=== PATIENT | female | born 1990 | race Caucasian/White ===

== ENCOUNTER 2017-01-16 06:33 | Emergency (ER) | payer SELFPAY ==
[~2017-01-16] VITALS: Ht 177.8 cm; Wt 64.0 kg
[~2017-01-16 06:33] MED LIST: AMOX500C5 PO; AZIT250T81 PO; CEPH-507 PO; CODE-54 PO; HYDR-3754 PO; KETO10TA55 PO; MYLANTA PO; OMEP20CA6 PO; PRX20T PO; RANITIDINE PO; SUCR1TAB29 PO
--- OUTSIDE RECORDS SUMMARY | 2017-01-16 06:39 | XMS REPORT | Continuity of Care Document ---
Author Author [facility] Address Unknown Phone Unavailable Care Team Providers Care Exhibits Curator Name Role Phone JARAD, RAHUL Parker MD PCP [phone] Insurance Providers Payer Name Policy Number Subscriber Name Relationship [facility] [id number] Lary Apple 18 Self / Same As Patient Advance Directives Directive Response Recorded Date/Time Advanced Directives No 09/08/16 6:11pm Chief Complaint and Reason for Visit Chief Complaint GI Complaint Reason for Visit Sore throat Gastroenteritis Problems Active Problems Medical Problem Onset Date Status Abdominal pain 03/13/2013 Acute Acute urinary tract infection 02/09/2013 Acute Cholecystitis 03/13/2013 Acute Chronic back pain Unknown Acute Gastroenteritis Unknown Acute Migraine Unknown Acute Peptic ulcer 03/07/2013 Acute Sore throat Unknown Acute Toothache ~01/31/2014 Acute Medications Current Home Medications Medication Dose Units Route Directions Days/Qty Instructions Start Date Acetaminophen/Codeine 1 Tab 1-2 Tab ORAL Every 4HRS as needed for Pain 15 01/31/14 Paroxetine Hcl (Paxil) 20 Mg 20 Mg ORAL Daily 09/08/16 Azithromycin 6 Tab/Pkt 250 Mg ORAL See Instructions for Infection 6 Day One: Take 2 tablets by mouth Days Two-Five: Take 1 tablet by mouth 09/08/16 Past Home Medications Medication Directions Ordered Status Ketorolac Tromethamine 10 Mg Tablet, 10 Mg Oral Every 6 Hours 02/09/13 Discontinued Cephalexin 500 Mg Capsule, 1000 Mg Oral Twice A Day 02/09/13 Discontinued Hydrocodone Bit/Acetaminophen 1 Tab Tab, 1 Tab Oral Q 4H Prn 03/07/13 Discontinued Omeprazole 20 Mg Capsule.dr, 20 Mg Oral Daily 03/07/13 Discontinued Sucralfate 1 Gm Tablet, 1 Gm Oral Three Times Daily With Meals 03/12/13 Discontinued [Mylanta] Susp, Oral 03/13/13 Discontinued [Ranitidine] Tab, Oral 03/13/13 Discontinued Amoxicillin 500 Mg Capsule, 1 Tab Oral Three Times A Day 01/31/14 Discontinued Social History Query Response Start Date Stop Date Smoking Status Current every day smoker Hospital Discharge Instructions No hospital discharge instructions. Plan of Care Discharge Date 09/08/16 8:05pm Disposition 01 HOME OR SELF-CARE Condition at Discharge Stable Instructions/Education Provided Nausea and Vomiting, Adult (DC) Viral Gastroenteritis, Adult (DC) Forms Provided Patient Seen In ED Return to Work Prescriptions See Medication Section Referrals RAHUL ABRAHAM MD - Additional Instructions/Education ED DAE if any worse. Follow up with your doctor. Some of your test results may not be complete prior to your leaving the Emergency Department. The Emergency Department is not authorized to give test results over the phone. Please contact the doctor's office listed in this packet of information for your final results. Follow up with your primary care physician or return to the Emergency Department for worsening or worrisome symptoms. * Emergency Department phone number: [phone], x [phone]* MEDICAL RECORD If you need copies of your X-rays, call [phone]. If you need copies of your medical record, including lab results, a signed authorization for release of records will be required. A telephone call for release of Health Information is not allowed. BILLING Billing can sometimes be confusing and frustrating. To help avoid confusion in the future, please take a moment to acquaint yourself with the billing parties for services. SERVICE BILLING [employer]AT Emergency Room Services [facility] Physician Services [facility] X-rays [facility] Patients will receive bills for services from the appropriate provider. If you have any questions about your [facility] bill, our staff will be happy to assist you. Please call [phone], and ask for the billing department. THANK YOU for choosing [facility] as your emergency care provider! Care Plan and Goals ~~Discharge Care Plan~~ Problem: Sore throat Goal: Pain decreased from sore throat. Instructions: Gargle with warm salt water to help reduce swelling and pain. Drink plenty of fluids. Hot fluids, such as tea or soup, may help decrease throat irritation. Take medication(s) as directed. Follow up with primary care physician as directed. Functional Status No functional status results. Allergies, Adverse Reactions, Alerts No known allergies. Immunizations No immunization records. Vital Signs Acute Vital Signs Vital Response Date/Time Temperature (Fahrenheit) 98.0 09/08/2016 7:32pm Pulse 107 bpm 09/08/2016 7:32pm Respirations 16 09/08/2016 7:32pm Height 5 ft 9 in Weight 141 lb Body Mass Index 20.0 kg/m^2 Results Laboratory Results Test Name Result Units Flags Reference Collection Date/Time Result Date/ Time Comments White Blood Count 10.27 10^3uL 4.0-11.0 09/08/2016 6:36pm 09/08/2016 6: 50pm Red Blood Count 4.82 10^6uL 4.00-5.00 09/08/2016 6:36pm 09/08/2016 6: 50pm Hemoglobin 14.3 g/dL 12.0-15.5 09/08/2016 6:36pm 09/08/2016 6:50pm Hematocrit 40.00 % 35.00-45.00 09/08/2016 6:36pm 09/08/2016 6:50pm Mean Corpuscular Volume 83 FL 80-100 09/08/2016 6:36pm 09/08/2016 6: 50pm Mean Corpuscular Hemoglobin 29.7 PG 26.0-34.0 09/08/2016 6:36pm 2015 6:50pm Mean Corpuscular Hemoglobin Concent 35.8 g/dL 31.0-37.0 09/08/2016 6: 36pm 09/08/2016 6:50pm Red Cell Distribution Width 12.4 % 11.8-15.6 09/08/2016 6:36pm 2015 6:50pm Platelet Count 295 10^3uL 150-450 09/08/2016 6:36pm 09/08/2016 6:50pm Mean Platelet Volume 8.9 FL 6.0-9.5 09/08/2016 6:36pm 09/08/2016 6: 50pm Neutrophils (%) (Auto) 71 % H 51-67 09/08/2016 6:36pm 09/08/2016 6:50pm Lymphocytes (%) (Auto) 20 % 20-46 09/08/2016 6:36pm 09/08/2016 6:50pm Monocytes (%) (Auto) 8 % 3-11 09/08/2016 6:36pm 09/08/2016 6:50pm Eosinophils (%) (Auto) 1 % 0-4 09/08/2016 6:36pm 09/08/2016 6:50pm Basophils (%) (Auto) 0 % 0-2 09/08/2016 6:36pm 09/08/2016 6:50pm Neutrophils # (Auto) 7.3 X10^3 09/08/2016 6:36pm 09/08/2016 6:50pm Lymphocytes # (Auto) 2.1 X10^3 09/08/2016 6:36pm 09/08/2016 6:50pm Monocytes # (Auto) 0.8 X10^3 09/08/2016 6:36pm 09/08/2016 6:50pm Eosinophils # (Auto) 0.1 10^3uL 09/08/2016 6:36pm 09/08/2016 6:50pm Basophils # (Auto) 0.0 10^3uL 09/08/2016 6:36pm 09/08/2016 6:50pm Urine Collection Type CLEAN CATCH 09/08/2016 6:30pm 09/08/2016 6: 50pm Urine Color Yellow 09/08/2016 6:30pm 09/08/2016 6:50pm Urine Clarity Slightly Cloudy 09/08/2016 6:30pm 09/08/2016 6:50pm Urine pH 6.0 5.0 - 8.0 09/08/2016 6:30pm 09/08/2016 6:50pm Urine Specific [place] >=1.030 1.005-1.030 09/08/2016 6:30pm 2015 6:50pm Urine Protein Negative Negative 09/08/2016 6:30pm 09/08/2016 6:50pm Urine Glucose (UA) Negative Negative 09/08/2016 6:30pm 09/08/2016 6: 50pm Urine RBC (Auto) Negative Negative 09/08/2016 6:30pm 09/08/2016 6: 50pm Urine Ketones 1+ H Negative 09/08/2016 6:30pm 09/08/2016 6:50pm Urine Nitrite Negative Negative 09/08/2016 6:30pm 09/08/2016 6:50pm Urine Bilirubin 1+ H Negative 09/08/2016 6:30pm 09/08/2016 6:50pm [place], [place] metabolite and atypical colors may interfere with the interpretation of the Bilirubin reaction. Further testing is required for confirmation. Urine Urobilinogen 1.0 mg/dL 0.2-1.0 09/08/2016 6:30pm 09/08/2016 6: 50pm Urine Leukocyte Esterase Negative Negative 09/08/2016 6:30pm 2015 6:50pm Sodium Level 143 mmol/L 135-150 09/08/2016 6:36pm 09/08/2016 7:00pm Potassium Level 3.6 mmol/L 3.5-5.1 09/08/2016 6:36pm 09/08/2016 7:00pm Chloride Level 103 mmol/L 98-108 09/08/2016 6:36pm 09/08/2016 7:00pm Carbon Dioxide Level 27 mmol/L 22-29 09/08/2016 6:36pm 09/08/2016 7: 00pm Anion Gap 16.8 MEQ/L H 3-15 09/08/2016 6:36pm 09/08/2016 7:00pm Blood Urea Nitrogen 10 mg/dL 7-18 09/08/2016 6:36pm 09/08/2016 7:00pm Creatinine 0.70 mg/dL 0.6-1.2 09/08/2016 6:36pm 09/08/2016 7:00pm BUN/Creatinine Ratio 14 10-20 09/08/2016 6:36pm 09/08/2016 7:00pm Estimat Glomerular Filtration Rate 124.4 09/08/2016 6:36pm 2015 7:00pm Estimated GFR (Non- 102.8 09/08/2016 6:36pm 2015 7:00pm Glucose Level 97 mg/dL 70-110 09/08/2016 6:36pm 09/08/2016 7:00pm Calculated Osmolality 275 mosm/L L 280-300 09/08/2016 6:36pm 09/08/2016 7:00pm Calcium Level 9.4 mg/dL 8.8-10.8 09/08/2016 6:36pm 09/08/2016 7:00pm Calcium/Ionized Calcium Ratio 4.0 mg/dL 3.8-4.6 09/08/2016 6:36pm 09/08 7:00pm Total Bilirubin 1.0 mg/dL 0.1-1.0 09/08/2016 6:36pm 09/08/2016 7:00pm Alkaline Phosphatase 100 U/L 38-126 09/08/2016 6:36pm 09/08/2016 7: 00pm Aspartate Amino Transf (AST/SGOT) 35 U/L 15-37 09/08/2016 6:36pm 2015 7:00pm Alanine Aminotransferase (ALT/SGPT) 58 U/L 30-65 09/08/2016 6:36pm 7:00pm Total Protein 7.5 g/dL 6.4-8.5 09/08/2016 6:36pm 09/08/2016 7:00pm Albumin 4.6 g/dL 3.4-5.0 09/08/2016 6:36pm 09/08/2016 7:00pm Albumin/Globulin Ratio 1.586 1.1-1.8 09/08/2016 6:36pm 09/08/2016 7: 00pm Amylase Level 49 U/L 25-115 09/08/2016 6:36pm 09/08/2016 7:00pm Lipase 78 U/L 23-300 09/08/2016 6:36pm 09/08/2016 7:00pm C-Reactive Protein 1.90 mg/dL H 0.0-0.9 09/08/2016 6:36pm 09/08/2016 7: 00pm Procedures No known history of procedures. Encounters Encounter Location Arrival/Admit Date Discharge/Depart Date Attending Provider Departed Emergency Room [facility] 09/08/16 6:05pm 09/08/16 8:05pm KIMMY THORNTON MD Recent Diagnosis
[2017-01-16] MEDS ORDERED: LOPERAMIDE 2 MG (IMODIUM) CAP PO ONE (07:05)
[2017-01-16] MEDS ORDERED: ONDAN4ODT PO (07:21)
[2017-01-16 07:53] VITALS: BP 134/109
== END 2017-01-16 07:55 | disposition home or self-care (01) ==
LOC: EDUNIT# 06:33 → ED 06:35
DX: A08.4 Viral intestinal infection, unspecified (principal)
CPT/HCPCS: 99282; 99283